=== PATIENT | female | born 1990 | race Caucasian/White ===

== ENCOUNTER 2021-11-07 11:52 | Day surgery (SDC) | payer OTHER ==
[~2021-11-07] VITALS: Ht 174 cm; Wt 140.0 kg
[~2021-11-07 11:52] MED LIST: ALBU2.5V8 INH; ALPR0.5T6 PO; BUPIVACAINE-EPI 0.5% 30 ML VIAL KIT. ONE; HYDR-2761 PO; HYDROmorphone 2 MG/ML INJ. IVP PRN; IOHEXOL 300 MG/ML 50 ML VIAL. ONE; IV RINGERS,LACTATED 1000ML 1,000 ML IV SCH; MORPHINE SULFATE 2 MG/ML INJ. IVP PRN; PROCHLORPERAZINE 10 MG/2 ML VIAL. IVP PRN; SERT-267 PO; SURGICEL HEMOSTAT 4X8 EACH. ONE; ceFAZolin SODIUM 3 GM in IV DEXTROSE 5% 100ML 100 ML IV PRN; fentaNYL PF VIAL 100 MCG/2 ML VIAL IVP PRN
[2021-11-07] MEDS ORDERED: ROCURONIUM 50 MG/5 ML VIAL. ONE (11:57)
[2021-11-07] MEDS ORDERED: fentaNYL PF VIAL 100 MCG/2 ML VIAL ONE (11:57)
[2021-11-07] MEDS ORDERED: ACETAMINOPHEN 500 MG TABLET PO ONE (12:45)
--- NOTE | 2021-11-07 12:55 | NUR ---
ONE ML OF MIXED ICY GREEN GIVEN IV PER ORDERS
[2021-11-07] MEDS ORDERED: SUGAMMADEX SODIUM 200 MG/2 ML VIAL. IVP ONE (14:15)
--- NOTE | 2021-11-07 14:28 | PDOC4 ---
Operative Note Operative Note Date: November 072021 at 2:25 PM Preoperative diagnosis: Chronic cholecystitis Postoperative diagnosis: Same Procedure: Laparoscopic cholecystectomy fluorescein cholangiography Surgeon: Mic Specimen: Gallbladder Press Supervisor: None Dictation: Patient is a 31-year-old female with right upper quadrant abdominal pain and ultrasound showing gallstones. Procedure of laparoscopic cholecystectomy was explained to the patient detail all risk benefits were also discussed including bleeding infection injury to intra-abdominal contents possible necessitating further open operations alternatives this procedure also discussed with the patient who seemed to understand and gave a verbal written consent had procedure performed. Patient was taken to the operating room placed in supine position general anesthesia was initiated once patient was sleeping intubated her abdomen was prepped and draped in usual sterile fashion using ChloraPrep. Area just below the umbilicus was injected with quarter percent Marcaine with epinephrine incision was made 11 blade scalpel and a varies needle was placed within the abdomen creating pneumoperitoneum once this was complete 11 mm port was placed and a 5 mm camera is placed within the abdomen which was inspected no other abnormalities were noted. A 5 mm port was placed in the epigastrium and 5 mm ports placed in the right midabdomen a 5 mm port was placed in the right lateral abdomen. The dome of the gallbladder is grasped retracted cephalad the infundibulum the gallbladder is grasped tract laterally exposing the triangle adherent tissues the triangle were taken down exposing the cystic duct and cystic artery the fluorescein cholangiography was then performed which showed good dye within the cystic duct down to the common bile duct with no evidence of obstruction. The cystic duct was then doubly clipped and transected as well as the cystic artery was doubly clipped and transected the gallbladder was taken off the liver with hook electrocautery placed in Endo Catch bag and roof the umbilicus right upper quadrant is irrigated and suctioned dry hemostasis deemed be appropriate the pneumoperitoneum was reduced all ports were removed the fascial defect at the umbilicus was closed with a [id number] 0 Vicryl suture and the skin was reapproximated all port sites for subcuticular Monocryl Mastisol Steri-Strips and island dressings were applied. Patient was awakened and extubated in the operating room taken to recovery in stable condition all sponge instrument needle counts listed as correct estimated blood loss 20 mL. ANAID DONNELLY MD Nov 07, 2021 14:28
[2021-11-07] MEDS ORDERED: OXYC-325 PO (14:30)
--- NOTE | 2021-11-07 14:31 | DISCH ---
DISCHARGE INSTRUCTIONS Condition on Discharge Condition on Discharge: Stable Activity After Discharge Activity Instructions for Disc: Avoid exertion Other activity instructions: No lifting more than 20 pounds for 2 weeks Diet after Discharge Diet after Discharge: Low Fat Wound Incision Care Other wound/incision instructi: May shower in 24 hours Contacting the after DC Call your doctor for: If your condition worsens Follow-Up Follow up with: Dr. Donnelly in 2 weeks ANAID DONNELLY MD Nov 07, 2021 14:31
[2021-11-07] MEDS: fentaNYL PF VIAL 100 MCG/2 ML VIAL IVP PRN ×3 (14:39→15:12)
[2021-11-07] MEDS ORDERED: oxyCODONE/APAP 5/325 1 TAB TABLET PO ONE (15:30)
[2021-11-07 15:50] VITALS: BP 174/82
--- NOTE | 2021-11-08 18:08 | PATHOLOGY ---
[facility] Accession Number: [id number] . 01 Material submitted: . gallbladder - GALLBLADDER AND CONTENTS . 01 Clinical history: . LAP YAKOV . 02 Diagnosis: Gallbladder, laparoscopic cholecystectomy: - Cholesterolosis, focal. - Chronic cholecystitis, mild. (JPM:pit; 11/08/2021) [facility] [[email or web address]] 11/08/2021 1450 Local . 02 Comment: There are no calculi identified within the gallbladder lumen or specimen container. There is no evidence of malignancy. (JPM:sarah; 11/08/2021) . 02 Electronically signed: . Lex Baker MD, Pathologist NPI- [id number] . 01 Gross description: . Fixative: Formalin Labeled: Gallbladder and contents Specimen received: Intact gallbladder Dimensions: 8.1 x 3.6 x 3.5 cm Serosa: Green-chan and smooth Lymph node: Not identified Mucosa: Green-lambert with mild yellow stippling Average wall thickness: 0.1 cm Calculi: None present within the specimen or specimen container Abnormalities: None identified . A1- Check Writing Machine Operator body, fundus, and the cystic duct margin. ([facility]; 11/07/2021) NRI/NRI 11/07/2021 1733 Local . 02 Pathologist provided ICD-10: K81.1, K82.4 . 02 CPT . 410449 Specimen Comment: A courtesy copy of this report has been sent to [phone], [phone] Specimen Comment: [phone] Specimen Comment: Report sent to / DR CUNHA Specimen Comment: A duplicate report has been generated due to demographic updates. Performed at: 01 [facility] [address] [place] [address] [address], [place] [id number] MD Serjio Dominguez MD Phone: [phone] Performed at: 02 [facility] [address], [place] [id number] MD Lex Baker MD Phone: [phone]
== END 2021-11-07 16:19 | disposition home or self-care (01) ==
LOC: SURG 11:52
PROVIDERS: ATTEND Surgery
DX: K81.1 Chronic cholecystitis (principal); J45.909 Unspecified asthma, uncomplicated; K21.9 Gastro-esophageal reflux disease without esophagitis; F41.9 Anxiety disorder, unspecified; F32.9 Major depressive disorder, single episode, unspecified; Z79.899 Other long term (current) drug therapy; Z87.891 Personal history of nicotine dependence; Z98.890 Other specified postprocedural states; Z72.89 Other problems related to lifestyle
CPT/HCPCS: 47563; 81025; A4213; A4364; A4930; A6219; J0780; J3010; J3490; A4657; Q9967